=== PATIENT | female | born 1985 | race Caucasian/White ===

== ENCOUNTER 2016-12-27 15:53 | Emergency (ER) | payer SELFPAY ==
[~2016-12-27] VITALS: Ht 170.2 cm; Wt 63.5 kg
[~2016-12-27 15:53] MED LIST: ALBUTEROL17 GM INH; IBUPROFEN PO; PREDNISONE PO; PRENATAL VITAMI1 TA3 PO; ZITHROMAX PO; [UNRECOGNIZED DRUG - OTHER] PO
== END 2016-12-27 18:22 | disposition home or self-care (01) ==
LOC: SED 15:53
DX: K04.7 Periapical abscess without sinus (principal); F17.210 Nicotine dependence, cigarettes, uncomplicated; Z88.0 Allergy status to penicillin
CPT/HCPCS: 99283